=== PATIENT | male | born 1965 ===

== ENCOUNTER 2019-01-13 16:11 | Day surgery (SDC) | payer OTHER, BC ==
[2019-01-13 05:24] VITALS: BMI 34.9
[2019-01-13] MEDS ORDERED: Lidocaine PF 2% (5 ml) Inj (For Cardiac Arrhy) ONE (16:44)
[2019-01-13] MEDS ORDERED: Iodixanol 320 MG/ML 100 ML BOTTLE IV ONE (16:44)
[2019-01-13] MEDS ORDERED: Iodixanol 320 MG/ML 200 ML BOTTLE IV ONE (16:44)
[2019-01-13] MEDS ORDERED: Midazolam 2 MG/2 ML VIAL ONE ×2 (16:52→17:05)
[2019-01-13] MEDS ORDERED: Sodium Chloride 0.9% 1,000 ML IV SCH (17:30)
[2019-01-13 22:48] VITALS: RESP 19
--- NOTE | 2019-01-13 22:56 | CARDCATH ---
PROCEDURE DATE: 01/13/2019 INDICATIONS: Tres Julian is a 53-year-old male with past medical history recently diagnosed new-onset congestive heart failure two weeks ago at which time he presented to [facility] with heart failure exacerbation. Echocardiogram showed new-onset CHF with EF of 25% to 30% with apical hypokinesis. He was subsequently discharged home and now was re-admitted with congestive heart failure exacerbation. After admission, I was called to evaluate him for etiology of ischemic versus nonischemic cardiomyopathy. PROCEDURE PERFORMED: Complete heart catheterization with selective left and right coronary angiogram, right heart catheterization with hemodynamics and saturations. RIGHT HEART CATHETERIZATION FINDINGS: RA pressure is 15/17 with a mean RA of 10 mmHg. RV pressure is 53/1 with RVEDP of 10. Pulmonary capillary wedge pressure mean was 17. PA pressure is 39/12 with a mean of 24. Using thermodilution method, cardiac output was calculated to be 5.15 L per minute. Cardiac index was 2.17 L per minutes per sq m area. LEFT HEART CATH FINDINGS: Left main is a large-sized vessel that bifurcates into left anterior descending and left circumflex coronary artery. Left main is free of any obstructive disease. LAD is a large sized vessel which gives off two medium-sized diagonal branches. LAD has a mid nonobstructive 40% to 50% stenosis. Left circumflex runs in the AV groove, gives off obtuse marginal branch with mild 40% to 50% stenosis. RCA is a large-sized vessel and free of any obstructive disease and gives off right PDA and PLV branches. Left ventricular ejection fraction is 15% to 20%. LVEDP was 26 mmHg. IMPRESSION: Nonischemic dilated cardiomyopathy, mild nonobstructive coronary artery disease, mildly elevated filling pressures. RECOMMENDATIONS: Continue aggressive medical management, risk factor modification, guideline-directed therapy for CHF. Keep the patient on beta blockers, ARBs, Aldactone, plus/minus Entresto. Consider EP evaluation for possible ICD if EF does not improve. May the patient have sleep studies for possible underlying sleep apnea and possibly EP evaluation for arrhythmia-induced cardiomyopathy. Thank you Dr. Avilez for letting me to participate in the care of your patient. Sean Metz MD cc: Gwendolyn Avilez MD [facility] # [id number]
[2019-01-13 23:42] VITALS: BP 110/70; PULSE 97
[2019-01-14 00:06] VITALS: TEMP 98.7
[2019-01-14] MEDS ORDERED: VILANTEROL IH SCH (10:00)
[2019-01-14] MEDS ORDERED: Albuterol 0.5% Inhal Sol (2.5 mg/0.5 ml) UD IH SCH (10:00)
[2019-01-14] MEDS ORDERED: FLUTICASONE IH SCH (10:00)
== END 2019-01-14 | disposition short-term general hospital (02) ==
LOC: CATH 16:11 → 2RSO 18:10 → CATH 01-14
PROVIDERS: ATTEND Internal Medicine Interventional Cardiology
DX: I25.10 Atherosclerotic heart disease of native coronary artery without angina pectoris (principal); I50.9 Heart failure, unspecified; I42.0 Dilated cardiomyopathy
CPT/HCPCS: 93460; 99152; 99153; C1760; C1769 ×2; C1894 ×2; J1644; J2250; J3010; J7030; Q9966; Q9967